=== PATIENT | male | born 1955 | race Caucasian/White ===

== ENCOUNTER 2018-05-26 17:17 | Emergency (ER) | payer SELFPAY ==
[~2018-05-26] VITALS: Ht 162.6 cm; Wt 64.1 kg
[2018-05-26 17:23] VITALS: BP 157/96; PULSE 98; RESP 16; Ht 162.6 cm; Wt 64.1 kg
== END 2018-05-26 20:40 | disposition left against medical advice (07) ==
LOC: FTE 17:17
DX: Z53.21 Procedure and treatment not carried out due to patient leaving prior to being seen by health care provider (principal)